=== PATIENT | male | born 1935 | race Caucasian/White ===

== ENCOUNTER 2024-01-04 11:37 | Inpatient (IN) | payer MEDICARE ==
--- NOTE | 2024-01-04 13:31 | ED ---
General Adult HPI - General Chief complaint: Recheck/Abnormal Lab/Rx Stated complaint: Abn labs Time Seen by Provider: 01/04/24 13:00 Source: patient, RN notes reviewed, old records reviewed Mode of arrival: ambulatory Limitations: no limitations - History of Present Illness Initial comments: Is an 88-year-old male who presents to the emergency department for low hemoglobin. Patient states he is on Eliquis for atrial fibrillation. Patient states has been months and he has been getting weaker more tired and more short of breath. Patient states when he takes a shower he has to sit down multiple times while taking a shower just to catch his breath. Patient denies chest pain or palpitation. Patient denies abdominal pain patient has nausea vomiting diarrhea. Patient denies any change in his stool. Patient Nu[place] any recent fever chills or cough - Related Data Home Medications Medication Instructions Recorded Confirmed Albuterol Inhaler [Ventolin Hfa 2 puff INHALATION RT-Q4H PRN 01/04/24 01/04/24 Inhaler] Apixaban [Eliquis] 5 mg PO BID 01/04/24 01/04/24 Brimonidine Tartrate/Timolol 1 drop LEFT EYE BID 01/04/24 01/04/24 [Combigan 0.2%-0.5% Eye Drops] Dorzolamide 2% [Trusopt 2%] 1 drops LEFT EYE BID 01/04/24 01/04/24 Gabapentin [Neurontin] 100 mg PO HS 01/04/24 01/04/24 Metoprolol Tartrate [Lopressor] 25 mg PO BID 01/04/24 01/04/24 Omeprazole 20 mg PO DAILY 01/04/24 01/04/24 Simvastatin [Zocor] 20 mg PO HS 01/04/24 01/04/24 Travoprost [Travatan Z 0.004%] 1 drop BOTH EYES HS 01/04/24 01/04/24 Vit C/E/Zn/Coppr/Lutein/Zeaxan 1 cap PO DAILY 01/04/24 01/04/24 [Preservision Areds 2 Softgel] glipiZIDE [Glucotrol] 10 mg PO AC-BID 01/04/24 01/04/24 lisinopriL 40 mg PO DAILY 01/04/24 01/04/24 metFORMIN HCL 1,000 mg PO BID 01/04/24 01/04/24 Allergies Allergy/AdvReac Type Severity Reaction Status Date / Time No Known Allergies Allergy Verified 01/04/24 13:25 Review of Systems ROS Statement: Those systems with pertinent positive or pertinent negative responses have been documented in the HPI. ROS Other: All systems not noted in ROS Statement are negative. Past Medical History Past Medical History: Atrial Fibrillation, Hypertension History of Any Multi-Drug Resistant Organisms: None Reported Additional Past Surgical History / Comment(s): eyes. Past Psychological History: No Psychological Hx Reported Smoking Status: Never smoker Past Alcohol Use History: None Reported Past Drug Use History: None Reported General Exam - General Exam Comments Initial Comments: GENERAL: Patient is well-developed and well-nourished. Patient is nontoxic and well- hydrated and is in mild distress. ENT: Neck is soft and supple. No significant lymphadenopathy is noted. Oropharynx is clear. Moist mucous membranes. Neck has full range of motion without eliciting any pain. EYES: The sclera were anicteric and conjunctiva are pale. Extraocular movements were intact and pupils were equal round and reactive to light. Eyelids were unremarkable. PULMONARY: Unlabored respirations. Good breath sounds bilaterally. No audible rales rhonchi or wheezing was noted. CARDIOVASCULAR: There is a regular rate and rhythm without any murmurs gallops or rubs. ABDOMEN: Soft and nontender with normal bowel sounds. SKIN: Skin is clear with no lesions or rashes and otherwise unremarkable. NEUROLOGIC: Patient is alert and oriented x3. Cranial nerves II through XII are grossly intact. Motor and sensory are also intact. Normal speech, volume and content. Symmetrical smile. MUSCULOSKELETAL: Normal extremities with adequate strength and full range of motion. No lower extremity swelling or edema. No calf tenderness. LYMPHATICS: No significant lymphadenopathy is noted PSYCHIATRIC: Normal psychiatric evaluation. Limitations: no limitations Course Vital Signs 01/04/24 01/04/24 01/04/24 11:58 13:05 13:10 Temperature 97.4 F L 97.8 F Pulse Rate 66 62 Respiratory 18 18 18 Rate Blood Pressure 115/66 155/66 O2 Sat by Pulse 99 96 Oximetry 01/04/24 01/04/24 01/04/24 14:08 14:58 15:10 Temperature 97.6 F 97.7 F 98.0 F Pulse Rate 74 56 L 71 Respiratory 16 16 18 Rate Blood Pressure 145/80 149/66 143/74 O2 Sat by Pulse 99 100 100 Oximetry Medical Decision Making - Medical Decision Making EKG is interpreted by myself. EKG shows atrial fibrillation at 60 bpm QRS 102 QT interval 410 QTc is 411. Patient's EKG shows no ST segment elevation Was pt. sent in by a medical professional or institution (WILLIAM Isabel, ARTIFICIAL STONE APPLICATOR, urgent care, hospital, or long-term...) When possible be specific @ -Sent in by the primary medical care doctor Did you speak to anyone other than the patient for history (EMS, parent, family, police, friend...)? What history was obtained from this source @ -Patient's daughter gave some of his Did you review nursing and triage notes (agree or disagree)? Why? @ -I reviewed and agree with nursing and triage notes Were old charts reviewed (outside hosp., previous admission, EMS record, old EKG, old radiological studies, urgent care reports/EKG's, long-term records)? Report findings @ -No old charts were reviewed Differential Diagnosis? @ -Anemia, GI bleed, congestive heart failure, this is not an all-inclusive list EKG interpreted by me (3pts min.). @ -As above X-rays interpreted by me (1pt min.). @ -None done CT interpreted by me (1pt min.). @ -None done U/S interpreted by me (1pt. min.). @ -None done What testing was considered but not performed or refused? (CT, X-rays, U/S, labs)? Why? @ -None What meds were considered but not given or refused? Why? @ -None Did you discuss the management of the patient with other professionals (professionals i.e. WILLIAM Isabel, ARTIFICIAL STONE APPLICATOR, lab, RT, psych nurse, nephrology social worker, senior sustainability consultant, teacher, emergency communications officer, employment case manager)? Give summary @ -I spoke with [facility] hospitalist and they agreed to admit the patient Was smoking cessation discussed for >3mins.? @ -No Was critical care preformed (if so, how long)? @ -35 minutes Were there social determinants of health that impacted care today? How? (Homelessness, low income, unemployed, alcoholism, drug addiction, transportation, low edu. Level, literacy, decrease access to med. care, assisted, rehab)? @ -No Was there de-escalation of care discussed even if they declined (Discuss DNR or withdrawal of care, Hospice)? DNR status @ -No What co-morbidities impacted this encounter? (DM, HTN, Smoking, COPD, CAD, Cancer, CVA, ARF, Chemo, Hep., AIDS, mental health diagnosis, sleep apnea, morbid obesity)? @ -None Was patient admitted / discharged? Hospital course, mention meds given and route, prescriptions, significant lab abnormalities, going to OR and other pertinent info. @ -Patient's hemoglobin was 6.8 and will be receiving a unit of packed red blood cells and being admitted to [facility] with a consult to Dr. Blanco Undiagnosed new problem with uncertain prognosis? @ -No Drug Therapy requiring intensive monitoring for toxicity (Heparin, Nitro, Insulin, Cardizem)? @ -No Were any procedures done? @ -No Diagnosis/symptom? @ -Anemia Acute, or Chronic, or Acute on Chronic? @ -Acute Uncomplicated (without systemic symptoms) or Complicated (systemic symptoms)? @ -Complicated Side effects of treatment? @ -No Exacerbation, Progression, or Severe Exacerbation? @ -No Poses a threat to life or bodily function? How? (Chest pain, [place], [place], pneumonia, PE, COPD, DKA, ARF, appy, cholecystitis, CVA, Diverticulitis, Homicidal, Suicidal, threat to staff... and all critical care pts) @ -Yes this can lead to hypoxia and endorgan dysfunction - Lab Data Result diagrams: 01/04/24 12:16 01/04/24 12:16 Lab Results 01/04/24 01/04/24 01/04/24 Range/Units 12:11 12:16 12:16 WBC 6.6 (3.8-10.6) k/uL RBC 3.08 L (4.30-5.90) m/uL Hgb 6.8 L* (13.0-17.5) gm/dL Hct 23.9 L (39.0-53.0) % MCV 77.5 L (80.0-100.0) fL MCH 22.2 L (25.0-35.0) pg MCHC 28.6 L (31.0-37.0) g/dL RDW 18.0 H (11.5-15.5) % Plt Count 309 (150-450) k/uL MPV 8.2 Neutrophils % 79 % Lymphocytes % 13 % Monocytes % 4 % Eosinophils % 2 % Basophils % 1 % Neutrophils # 5.2 (1.3-7.7) k/uL Lymphocytes # 0.8 L (1.0-4.8) k/uL Monocytes # 0.2 (0-1.0) k/uL Eosinophils # 0.1 (0-0.7) k/uL Basophils # 0.1 (0-0.2) k/uL Hypochromasia Marked Poikilocytosis Slight Anisocytosis Slight Microcytosis Slight PT 11.9 (10.0-12.5) sec INR 1.1 (<1.2) APTT 26.6 (22.0-30.0) sec Sodium (137-145) mmol/L Potassium (3.5-5.1) mmol/L Chloride (98-107) mmol/L Carbon Dioxide (22-30) mmol/L Anion Gap mmol/L BUN (9-20) mg/dL Creatinine (0.66-1.25) mg/dL Est GFR (CKD-EPI)AfAm (>60 ml/min/1.73 sqM) Est GFR (CKD-EPI)NonAf (>60 ml/min/1.73 sqM) Glucose (74-99) mg/dL Calcium (8.4-10.2) mg/dL Magnesium (1.6-2.3) mg/dL Total Bilirubin (0.2-1.3) mg/dL AST (17-59) U/L ALT (4-49) U/L Alkaline Phosphatase (38-126) U/L Troponin I (0.000-0.034) ng/mL Total Protein (6.3-8.2) g/dL Albumin (3.5-5.0) g/dL Blood Type Blood Type Confirm O Positive Blood Type Recheck Bld Type Recheck Status Antibody Screen Crossmatch Spec Expiration Date 01/04/24 01/04/24 01/04/24 Range/Units 12:16 12:16 12:16 WBC (3.8-10.6) k/uL RBC (4.30-5.90) m/uL Hgb (13.0-17.5) gm/dL Hct (39.0-53.0) % MCV (80.0-100.0) fL MCH (25.0-35.0) pg MCHC (31.0-37.0) g/dL RDW (11.5-15.5) % Plt Count (150-450) k/uL MPV Neutrophils % % Lymphocytes % % Monocytes % % Eosinophils % % Basophils % % Neutrophils # (1.3-7.7) k/uL Lymphocytes # (1.0-4.8) k/uL Monocytes # (0-1.0) k/uL Eosinophils # (0-0.7) k/uL Basophils # (0-0.2) k/uL Hypochromasia Poikilocytosis Anisocytosis Microcytosis PT (10.0-12.5) sec INR (<1.2) APTT (22.0-30.0) sec Sodium 139 (137-145) mmol/L Potassium 4.4 (3.5-5.1) mmol/L Chloride 114 H (98-107) mmol/L Carbon Dioxide 13 L (22-30) mmol/L Anion Gap 12 mmol/L BUN 23 H (9-20) mg/dL Creatinine 1.12 (0.66-1.25) mg/dL Est GFR (CKD-EPI)AfAm 69 (>60 ml/min/1.73 sqM) Est GFR (CKD-EPI)NonAf 59 (>60 ml/min/1.73 sqM) Glucose 180 H (74-99) mg/dL Calcium 8.7 (8.4-10.2) mg/dL Magnesium 1.3 L (1.6-2.3) mg/dL Total Bilirubin 0.7 (0.2-1.3) mg/dL AST 23 (17-59) U/L ALT 16 (4-49) U/L Alkaline Phosphatase 70 (38-126) U/L Troponin I <0.012 (0.000-0.034) ng/mL Total Protein 6.9 (6.3-8.2) g/dL Albumin 4.1 (3.5-5.0) g/dL Blood Type O Positive Blood Type Confirm Blood Type Recheck No Previous Record Bld Type Recheck Status CABO Indicated Antibody Screen NEGATIVE Crossmatch See Detail Spec Expiration Date 01/07/20242315 Disposition Clinical Impression: Hypomagnesemia, Anemia Disposition: ADMITTED IP TO THIS [facility] Referrals: Quinten Tanner DO [Primary Care Provider] - 1-2 days Time of Disposition: 16:07
[2024-01-04 13:43] LABS: ALT 16 U/L (4-49); AST 23 U/L (17-59); African American GFR (CKD) 69 (>60 ml/min/1.73 sqM); Albumin 4.1 g/dL (3.5-5.0); Alkaline Phosphatase 70 U/L (38-126); Anion Gap 12 mmol/L; Blood Urea Nitrogen 23 mg/dL (9-20); Calcium 8.7 mg/dL (8.4-10.2); Carbon Dioxide 13 mmol/L (22-30); Chloride 114 mmol/L (98-107); Glucose 180 mg/dL (74-99); Magnesium 1.3 mg/dL (1.6-2.3); Non-African American GFR(CKD) 59 (>60 ml/min/1.73 sqM); Potassium 4.4 mmol/L (3.5-5.1); Sodium 139 mmol/L (137-145); Total Bilirubin 0.7 mg/dL (0.2-1.3); Total Protein 6.9 g/dL (6.3-8.2)
[2024-01-04 13:46] LABS: Anisocytosis Slight; Basophils # (A) 0.1 k/uL (0-0.2); Basophils % (A) 1 %; Eosinophils # (A) 0.1 k/uL (0-0.7); Eosinophils % (A) 2 %; HCT 23.9 % (39.0-53.0); Hypochromasia Marked; Lymphocytes # (A) 0.8 k/uL (1.0-4.8); Lymphocytes % (A) 13 %; MCH 22.2 pg (25.0-35.0); MCHC 28.6 g/dL (31.0-37.0); MCV 77.5 fL (80.0-100.0); Mean Platelet Volume 8.2; Microcytosis Slight; Monocytes # (A) 0.2 k/uL (0-1.0); Monocytes % (A) 4 %; Neutrophils # (A) 5.2 k/uL (1.3-7.7); Neutrophils % (A) 79 %; Platelet Count 309 k/uL (150-450); Poikilocytosis Slight; RBC 3.08 m/uL (4.30-5.90); WBC 6.6 k/uL (3.8-10.6)
[2024-01-04 13:48] LABS: HGB 6.8 gm/dL (13.0-17.5)
[2024-01-04 13:49] LABS: INR 1.1 (<1.2); Partial Thromboplastin Time 26.6 sec (22.0-30.0); Prothrombin Time 11.9 sec (10.0-12.5)
[2024-01-04] MEDS: MAGNESIUM SULFATE-D5W PMX 1 GM in DEXTROSE/WATER 1 100ML.BAG IVPB ONE (13:58)
[2024-01-04] MEDS ORDERED: DEXTROSE 50% SYRINGE 50 ML IVP PRN ×2 (14:38)
[2024-01-04] MEDS: PANTOPRAZOLE 40 MG/10 ML VIAL IVP STA (14:54)
[2024-01-04] MEDS: INSULIN ASPART (NovoLOG) 100 UNIT/ML VIAL SQ SCH (17:23)
[2024-01-04 17:25] LABS: Glucose,Whole Blood 62 mg/dL (70-110)
[2024-01-04 18:24] LABS: Glucose,Whole Blood 73 mg/dL (70-110)
[2024-01-04 20:06] LABS: % Iron Saturation 5.56 (15.00-50.00)
[2024-01-04 20:09] LABS: Glucose,Whole Blood 80 mg/dL (70-110)
[2024-01-04] MEDS ORDERED: ALBUTEROL HFA INHALER INHALATION PRN (20:12)
[2024-01-04] MEDS: BRIMONIDINE TARTRATE 0.2% DROPS 5 ML BTL LEFT EYE SCH (20:50)
[2024-01-04] MEDS: LATANOPROST 0.005% OPHTH DROPS 2.5 ML BTL BOTH EYES SCH (20:50)
[2024-01-04] MEDS: METOPROLOL TARTRATE 25 MG TAB PO SCH (20:51)
[2024-01-04] MEDS: DORZOLAMIDE HCL 2% DROPS 10 ML BTL LEFT EYE SCH (20:51)
[2024-01-04] MEDS: GABAPENTIN 100 MG CAP PO SCH (20:51)
[2024-01-04] MEDS: lisinopriL 20 MG TAB PO SCH (20:51)
[2024-01-04] MEDS: TIMOLOL 0.5% OPHTH DROPS 5 ML BTL LEFT EYE SCH (20:51)
[2024-01-04] MEDS: ATORVASTATIN 10 MG TAB PO SCH (20:51)
[2024-01-04 21:22] LABS: Anisocytosis Slight; Basophils # (A) 0.1 k/uL (0-0.2); Basophils % (A) 1 %; Eosinophils # (A) 0.1 k/uL (0-0.7); Eosinophils % (A) 2 %; HCT 26.3 % (39.0-53.0); HGB 7.9 gm/dL (13.0-17.5); Hypochromasia Marked; Lymphocytes % (A) 14 %; MCH 23.6 pg (25.0-35.0); MCHC 30.1 g/dL (31.0-37.0); MCV 78.4 fL (80.0-100.0); Mean Platelet Volume 9.3; Microcytosis Slight; Monocytes # (A) 0.4 k/uL (0-1.0); Monocytes % (A) 6 %; Neutrophils % (A) 75 %; Platelet Count 268 k/uL (150-450); Poikilocytosis Moderate; RBC 3.36 m/uL (4.30-5.90); RDW 18.2 % (11.5-15.5); WBC 6.7 k/uL (3.8-10.6)
--- NOTE | 2024-01-04 21:26 | P.HPIM ---
History of Present Illness H&P Date: 01/04/24 Chief Complaint: Shortness of breath Patient is a 88-year-old male with a past medical history of atrial fibrillation on anticoagulation with Eliquis, hypertension, diabetes type 2, chronic neck pain presents to ER with complaints of abnormal labs/low hemoglobin level. Casandra ent states that he did get MRI of the neck due to chronic pain blood workup done at that time showed hemoglobin low 6.0. Patient was referred to ER. Patient also states that he has been getting weaker, more tired and fatigued and is also having shortness of breath for the past couple of months. Denied any complaints of chest pain. No nausea or vomiting. Denied any hematemesis. Patient is not sure whether he has dark-colored stools. According to the patient he had stool blood test was done few weeks ago which was negative. Denied any complaints of trauma. No cough or sputum production. No fever no chills. Laboratory data on admission showed hemoglobin level of 6.8. Other laboratory data showed WBC 6.6 MCV 77.5 platelets 309 sodium 139 potassium 4.4 chloride 114 bicarb is 13 BUN 23 and creatinine 1.12 and blood sugar 140 and magnesium 1.3 liver enzymes are not elevated. Albumin 4.1 and troponin x 1 negative. Review of Systems Constitutional: Patient denies any fever or chills . Generalized weakness and fatigue Abdomen: Patient denied nausea vomiting and diarrhea and abdominal pain. Cardiovascular: Patient denies any chest pain. Positive for short of breath and exertional dyspnea. No palpitations. Respiratory: patient denied any cough or sputum production. Positive shortness of breath Neurologic: Patient denied any numbness or tingling. no headache. Musculoskeletal: Patient denies any complaints of joint swelling or deformity. Skin: Negative Psychiatric: Negative Endocrine: No heat or cold intolerance. No recent weight gain. Genitourinary: No dysuria or hematuria. All other 14 point ROS negative except the above Past Medical History Past Medical History: Atrial Fibrillation, Diabetes Mellitus, Hypertension History of Any Multi-Drug Resistant Organisms: None Reported Additional Past Surgical History / Comment(s): eyes. Past Psychological History: No Psychological Hx Reported Smoking Status: Never smoker Past Alcohol Use History: None Reported Past Drug Use History: None Reported - Past Family History Mother Family Medical History: Diabetes Mellitus Medications and Allergies Home Medications Medication Instructions Recorded Confirmed Type Albuterol Inhaler [Ventolin Hfa 2 puff INHALATION RT-Q4H PRN 01/04/24 01/04/24 History Inhaler] Apixaban [Eliquis] 5 mg PO BID 01/04/24 01/04/24 History Brimonidine Tartrate/Timolol 1 drop LEFT EYE BID 01/04/24 01/04/24 History [Combigan 0.2%-0.5% Eye Drops] Dorzolamide 2% [Trusopt 2%] 1 drops LEFT EYE BID 01/04/24 01/04/24 History Gabapentin [Neurontin] 100 mg PO HS 01/04/24 01/04/24 History Metoprolol Tartrate [Lopressor] 25 mg PO BID 01/04/24 01/04/24 History Omeprazole 20 mg PO DAILY 01/04/24 01/04/24 History Simvastatin [Zocor] 20 mg PO HS 01/04/24 01/04/24 History Travoprost [Travatan Z 0.004%] 1 drop BOTH EYES HS 01/04/24 01/04/24 History Vit C/E/Zn/Coppr/Lutein/Zeaxan 1 cap PO DAILY 01/04/24 01/04/24 History [Preservision Areds 2 Softgel] glipiZIDE [Glucotrol] 10 mg PO AC-BID 01/04/24 01/04/24 History lisinopriL 40 mg PO DAILY 01/04/24 01/04/24 History metFORMIN HCL 1,000 mg PO BID 01/04/24 01/04/24 History Allergies Allergy/AdvReac Type Severity Reaction Status Date / Time No Known Allergies Allergy Verified 01/04/24 13:25 Physical Exam Vitals: Vital Signs Temp Pulse Pulse Resp BP BP Pulse Ox 01/04/24 18:46 77 17 155/60 93 L 01/04/24 17:15 98.0 F 73 17 180/92 100 01/04/24 17:08 98.0 F 73 17 180/92 100 01/04/24 15:30 97.4 F L 66 17 150/63 100 01/04/24 15:10 98.0 F 71 18 143/74 100 01/04/24 14:58 97.7 F 56 L 16 149/66 100 01/04/24 14:08 97.6 F 74 16 145/80 99 01/04/24 13:10 97.8 F 62 18 155/66 96 01/04/24 13:05 18 01/04/24 11:58 97.4 F L 66 18 115/66 99 Intake and Output 01/04/24 01/04/24 01/04/24 06:59 14:59 22:59 Intake Total 310 Balance 310 Intake: Blood Product 310 Rc Irr As1 Unit 310 [id number] Other: Weight 79.832 kg 79.832 kg PHYSICAL EXAMINATION: Patient is lying in the bed comfortably, no acute distress, awake alert and oriented.. HEENT: Normocephalic. Neck is supple. Pupils reactive. Nostrils clear. Oral cavity is moist. Neck reveals no JVD, carotid bruits, or thyromegaly. CHEST EXAMINATION: Trachea is central. Symmetrical expansion. Lung lennon clear to auscultation and percussion. CARDIAC: Normal S1, S2 with no gallops. Systolic murmur. Irregular rhythm. ABDOMEN: Soft. Bowel sounds normal. No organomegaly. No abdominal bruits. Extremities: reveal no edema. No clubbing or cyanosis Neurologically awake, alert, oriented x3 with well-coordinated movements. No focal deficits noted Skin: No rash or skin lesions. Psychiatric: Coperative. Nonsuicidal Musculoskeletal: No joint swelling or deformity. Normal range of motion. Results CBC & Chem 7: 01/04/24 20:57 01/04/24 12:16 Labs: Abnormal Lab Results - Last 24 Hours (Table) 01/04/24 01/04/24 01/04/24 Range/Units 12:16 12:16 12:16 RBC 3.08 L (4.30-5.90) m/uL Hgb 6.8 L* (13.0-17.5) gm/dL Hct 23.9 L (39.0-53.0) % MCV 77.5 L (80.0-100.0) fL MCH 22.2 L (25.0-35.0) pg MCHC 28.6 L (31.0-37.0) g/dL RDW 18.0 H (11.5-15.5) % Lymphocytes # 0.8 L (1.0-4.8) k/uL Chloride 114 H (98-107) mmol/L Carbon Dioxide 13 L (22-30) mmol/L BUN 23 H (9-20) mg/dL Glucose 180 H (74-99) mg/dL POC Glucose (mg/dL) (70-110) mg/dL Magnesium 1.3 L (1.6-2.3) mg/dL Iron (65-175) UG/DL TIBC (228-460) UG/DL % Saturation (15.00-50.00) Transferrin (204.0-354.0) mg/dL Crossmatch See Detail 01/04/24 01/04/24 Range/Units 12:16 17:22 RBC (4.30-5.90) m/uL Hgb (13.0-17.5) gm/dL Hct (39.0-53.0) % MCV (80.0-100.0) fL MCH (25.0-35.0) pg MCHC (31.0-37.0) g/dL RDW (11.5-15.5) % Lymphocytes # (1.0-4.8) k/uL Chloride (98-107) mmol/L Carbon Dioxide (22-30) mmol/L BUN (9-20) mg/dL Glucose (74-99) mg/dL POC Glucose (mg/dL) 62 L (70-110) mg/dL Magnesium (1.6-2.3) mg/dL Iron 28 L (65-175) UG/DL TIBC 504 H (228-460) UG/DL % Saturation 5.56 L (15.00-50.00) Transferrin 360.0 H (204.0-354.0) mg/dL Crossmatch Thrombosis Risk Factor Assmnt - DVT/VTE Prophylaxis DVT/VTE Prophylaxis: Mechanical Prophylaxis ordered - Choose All That Apply Any of the Below Risk Factors Present?: Yes Each Factor Represents 1 point: Obesity (BMI >25) Other Risk Factors: Yes Each Risk Factor Represents 3 Points: Age 75 years or older Other congenital or acquired thrombophilia - If yes, enter type in comment: No Thrombosis Risk Factor Assessment Total Risk Factor Score: 4 Thrombosis Risk Factor Assessment Level: Moderate Risk Assessment and Plan Assessment: Symptomatic anemia with hemoglobin level 6.8 on admission Chronic blood loss anemia possible GI bleed Microcytic anemia likely iron deficiency Hypomagnesemia Chronic atrial fibrillation on anticoagulation with Eliquis Hyperlipidemia Diabetes type 2 [id number] Hypertension DVT prophylaxis with SCDs Plan: Patient will be started on IV hydration. Transfusing with 1 unit of PRBC to keep the hemoglobin level greater than 7. FOBT was ordered as well as iron profile. Patient will be started on clear liquid diet and nothing by mouth after midnight. Continue with PPI IV twice daily. Gastroenterology service was consulted. Eliquis is on hold. Continue to monitor H&H every 6 hourly. Follow-up closely. Continue with other home medications. Discussed with the patient and his at bedside in detail. Time with Patient: Greater than 30
[2024-01-05 01:48] LABS: Glucose,Whole Blood 72 mg/dL (70-110)
[2024-01-05 04:46] LABS: Anisocytosis Slight; Basophils % (A) 1 %; Eosinophils # (A) 0.2 k/uL (0-0.7); Eosinophils % (A) 3 %; HCT 22.1 % (39.0-53.0); Hypochromasia Marked; Lymphocytes # (A) 0.9 k/uL (1.0-4.8); Lymphocytes % (A) 17 %; MCH 23.6 pg (25.0-35.0); MCV 76.2 fL (80.0-100.0); Mean Platelet Volume 8.5; Microcytosis Slight; Monocytes # (A) 0.3 k/uL (0-1.0); Monocytes % (A) 6 %; Neutrophils # (A) 3.7 k/uL (1.3-7.7); Neutrophils % (A) 72 %; Platelet Count 252 k/uL (150-450); Poikilocytosis Marked; RDW 17.7 % (11.5-15.5); WBC 5.1 k/uL (3.8-10.6)
[2024-01-05 05:18] LABS: HGB 6.8 gm/dL (13.0-17.5)
[2024-01-05] MEDS: SODIUM CHLORIDE 0.9% 1,000 ML IV SCH ×2 (05:19→23:20)
[2024-01-05 06:06] LABS: Glucose,Whole Blood 81 mg/dL (70-110)
[2024-01-05 06:34] LABS: African American GFR (CKD) 81 (>60 ml/min/1.73 sqM); Anion Gap 8 mmol/L; Blood Urea Nitrogen 19 mg/dL (9-20); Calcium 8.5 mg/dL (8.4-10.2); Carbon Dioxide 18 mmol/L (22-30); Chloride 113 mmol/L (98-107); Glucose 71 mg/dL (74-99); Non-African American GFR(CKD) 70 (>60 ml/min/1.73 sqM); Sodium 139 mmol/L (137-145)
[2024-01-05] MEDS ORDERED: PANTOPRAZOLE 40 MG TABLET PO SCH (07:30)
[2024-01-05] MEDS: PANTOPRAZOLE 40 MG/10 ML VIAL IVP SCH (09:35)
[2024-01-05] MEDS: VIT A,C & E-LUTEIN-MINERALS 1 EACH TAB PO SCH (09:36)
[2024-01-05 11:41] LABS: Glucose,Whole Blood 117 mg/dL (70-110)
--- NOTE | 2024-01-05 12:25 | P.CONS ---
History of Present Illness - Reason for Consult Consult date: 01/05/24 Anemia Requesting physician: Rubén Rodriguez - Chief Complaint Weakness, dyspnea - History of Present Illness This a pleasant 88-year-old male with a medical history including atrial fibrillation on Eliquis diagnosed about 2 years ago and hypertension who had presented to the emergency department yesterday with complaints of increased weakness and shortness of breath. States he had blood work done and was told that he had low hemoglobin and come to the emergency department. Hemoglobin on admission was 6.8, he was given 1 unit of blood with repeat hemoglobin is 7.9 with a drop again today to 6.8. He is status post 2 units of blood. He denies any previous history of GI bleed. No history of peptic ulcer disease, does have some GERD but takes omeprazole at home. No previous upper endoscopy. Last colonoscopy several years ago. He does state that he did do a Cologuard about a year ago that was negative. He denies any blood in his stool or black stool. Denies any abdominal pain, nausea or vomiting. Does not take any NSAIDs. Review of Systems REVIEW OF SYSTEMS: CARDIOPULMONARY: No chest pain or dyspnea with exertion. Gastrointestinal: No abdominal pain. No nausea or vomiting. No hematemesis, coffee-ground emesis. No rectal bleeding, or melena. GENITOURINARY: No dysuria or hematuria. MUSCULOSKELETAL: Reports normal range of motion. Joint pain. SKIN: No rashes. No jaundice. ENDOCRINE: No chills, fevers. No excessive weight gain or loss. No polydipsia or polyuria. PSYCHIATRIC: Unremarkable. NEUROLOGY: No change in mental status. Denies dizziness, headache. ENT: Vision unremarkable. CONSTITUTIONAL: No recent weight loss. No fever, chills, night sweats. Increased weakness and fatigue. Past Medical History Past Medical History: Atrial Fibrillation, Diabetes Mellitus, Hypertension History of Any Multi-Drug Resistant Organisms: None Reported Additional Past Surgical History / Comment(s): eyes. Past Psychological History: No Psychological Hx Reported Smoking Status: Never smoker Past Alcohol Use History: None Reported Past Drug Use History: None Reported - Past Family History Mother Family Medical History: Diabetes Mellitus Medications and Allergies Home Medications Medication Instructions Recorded Confirmed Type Albuterol Inhaler [Ventolin Hfa 2 puff INHALATION RT-Q4H PRN 01/04/24 01/04/24 History Inhaler] Apixaban [Eliquis] 5 mg PO BID 01/04/24 01/04/24 History Brimonidine Tartrate/Timolol 1 drop LEFT EYE BID 01/04/24 01/04/24 History [Combigan 0.2%-0.5% Eye Drops] Dorzolamide 2% [Trusopt 2%] 1 drops LEFT EYE BID 01/04/24 01/04/24 History Gabapentin [Neurontin] 100 mg PO HS 01/04/24 01/04/24 History Metoprolol Tartrate [Lopressor] 25 mg PO BID 01/04/24 01/04/24 History Omeprazole 20 mg PO DAILY 01/04/24 01/04/24 History Simvastatin [Zocor] 20 mg PO HS 01/04/24 01/04/24 History Travoprost [Travatan Z 0.004%] 1 drop BOTH EYES HS 01/04/24 01/04/24 History Vit C/E/Zn/Coppr/Lutein/Zeaxan 1 cap PO DAILY 01/04/24 01/04/24 History [Preservision Areds 2 Softgel] glipiZIDE [Glucotrol] 10 mg PO AC-BID 01/04/24 01/04/24 History lisinopriL 40 mg PO DAILY 01/04/24 01/04/24 History metFORMIN HCL 1,000 mg PO BID 01/04/24 01/04/24 History Allergies Allergy/AdvReac Type Severity Reaction Status Date / Time No Known Allergies Allergy Verified 01/04/24 13:25 Physical Exam Vitals: Vital Signs Temp Pulse Pulse Resp BP BP BP 01/05/24 08:00 97.1 F L 83 16 115/63 01/05/24 07:49 97.7 F 64 16 165/66 01/05/24 06:49 97.5 F L 67 16 161/69 01/05/24 06:29 97.8 F 73 16 159/58 01/05/24 06:20 97.4 F L 63 16 133/65 01/05/24 03:36 97.4 F L 52 L 12 125/54 01/04/24 23:48 59 L 18 110/64 01/04/24 19:35 97.1 F L 59 L 20 163/56 01/04/24 18:46 77 17 155/60 01/04/24 17:15 98.0 F 73 17 180/92 01/04/24 17:08 98.0 F 73 17 180/92 01/04/24 15:30 97.4 F L 66 17 150/63 01/04/24 15:10 98.0 F 71 18 143/74 01/04/24 14:58 97.7 F 56 L 16 149/66 01/04/24 14:08 97.6 F 74 16 145/80 01/04/24 13:10 97.8 F 62 18 155/66 01/04/24 13:05 18 01/04/24 11:58 97.4 F L 66 18 115/66 Pulse Ox 01/05/24 08:00 96 01/05/24 07:49 96 01/05/24 06:49 96 01/05/24 06:29 97 01/05/24 06:20 96 01/05/24 03:36 96 01/04/24 23:48 97 01/04/24 19:35 97 01/04/24 18:46 93 L 01/04/24 17:15 100 01/04/24 17:08 100 01/04/24 15:30 100 01/04/24 15:10 100 01/04/24 14:58 100 01/04/24 14:08 99 01/04/24 13:10 96 01/04/24 13:05 01/04/24 11:58 99 Intake and Output 01/04/24 01/05/24 01/05/24 22:59 06:59 14:59 Intake Total 310 0 280 Balance 310 0 280 Intake: Blood Product 310 0 280 Rc Irr As1 Unit 310 [id number] Rc Pheresis 2 As3 Unit 0 280 [id number] Other: Voiding Method Toilet Toilet Toilet # Voids 1 1 Weight 79.832 kg 80 kg General appearance: The patient is alert, oriented, appears in no acute distress. HET: Head is normocephalic and atraumatic. Conjunctiva pink. Sclera anicteric. Neck: Supple without lymphadenopathy. Trachea midline. Heart: Regular. Lungs: Equal expansion, normal respiratory effort. Abdomen: Soft, nontender, nondistended. Skin: No rashes. No jaundice. Extremities: Normal skin color and turgor. No pedal edema. Neurological: No focal deficits. Alert and oriented x3. Results CBC & Chem 7: 01/05/24 03:30 01/05/24 06:15 Labs: Abnormal Lab Results - Last 24 Hours (Table) 01/04/24 01/04/24 01/04/24 Range/Units 12:16 12:16 12:16 RBC 3.08 L (4.30-5.90) m/uL Hgb 6.8 L* (13.0-17.5) gm/dL Hct 23.9 L (39.0-53.0) % MCV 77.5 L (80.0-100.0) fL MCH 22.2 L (25.0-35.0) pg MCHC 28.6 L (31.0-37.0) g/dL RDW 18.0 H (11.5-15.5) % Lymphocytes # 0.8 L (1.0-4.8) k/uL Chloride 114 H (98-107) mmol/L Carbon Dioxide 13 L (22-30) mmol/L BUN 23 H (9-20) mg/dL Glucose 180 H (74-99) mg/dL POC Glucose (mg/dL) (70-110) mg/dL Magnesium 1.3 L (1.6-2.3) mg/dL Iron (65-175) UG/DL TIBC (228-460) UG/DL % Saturation (15.00-50.00) Transferrin (204.0-354.0) mg/dL Crossmatch See Detail 01/04/24 01/04/24 01/04/24 Range/Units 12:16 17:22 20:57 RBC 3.36 L (4.30-5.90) m/uL Hgb 7.9 L (13.0-17.5) gm/dL Hct 26.3 L (39.0-53.0) % MCV 78.4 L (80.0-100.0) fL MCH 23.6 L (25.0-35.0) pg MCHC 30.1 L (31.0-37.0) g/dL RDW 18.2 H (11.5-15.5) % Lymphocytes # (1.0-4.8) k/uL Chloride (98-107) mmol/L Carbon Dioxide (22-30) mmol/L BUN (9-20) mg/dL Glucose (74-99) mg/dL POC Glucose (mg/dL) 62 L (70-110) mg/dL Magnesium (1.6-2.3) mg/dL Iron 28 L (65-175) UG/DL TIBC 504 H (228-460) UG/DL % Saturation 5.56 L (15.00-50.00) Transferrin 360.0 H (204.0-354.0) mg/dL Crossmatch 01/05/24 01/05/24 Range/Units 03:30 06:15 RBC 2.90 L (4.30-5.90) m/uL Hgb 6.8 L* (13.0-17.5) gm/dL Hct 22.1 L (39.0-53.0) % MCV 76.2 L (80.0-100.0) fL MCH 23.6 L (25.0-35.0) pg MCHC (31.0-37.0) g/dL RDW 17.7 H (11.5-15.5) % Lymphocytes # 0.9 L (1.0-4.8) k/uL Chloride 113 H (98-107) mmol/L Carbon Dioxide 18 L (22-30) mmol/L BUN (9-20) mg/dL Glucose 71 L (74-99) mg/dL POC Glucose (mg/dL) (70-110) mg/dL Magnesium (1.6-2.3) mg/dL Iron (65-175) UG/DL TIBC (228-460) UG/DL % Saturation (15.00-50.00) Transferrin (204.0-354.0) mg/dL Crossmatch Assessment and Plan (1) Microcytic anemia Narrative/Plan: 8-year-old male presenting with symptomatic anemia. Noted to have microcytic anemia. Iron studies ordered. Denies any signs of GI bleed. Last colonoscopy several years ago no previous upper endoscopy and no previous history of peptic ulcer disease. Patient is on Eliquis for atrial fibrillation. Unclear etiology of anemia, need to rule out GI source. Will plan for upper and lower endoscopy. Hold anticoagulation. Current Visit: Yes Status: Acute Code(s): D50.9 - IRON DEFICIENCY ANEMIA, UNSPECIFIED SNOMED Code(s): 753608529 (2) Atrial fibrillation Narrative/Plan: On ELiquis Current Visit: Yes Status: Acute Code(s): I48.91 - UNSPECIFIED ATRIAL FIBRILLATION SNOMED Code(s): 46036954 Plan: 1. Continue symptomatic and supportive care 2. Clear liquid diet 3. N.p.o. after midnight other than bowel prep 4. Start bowel prep tomorrow morning and complete by 10 AM 5. Hold anticoagulation 6. Continue Protonix 40 mg twice daily 7. Will plan for EGD and colonoscopy, possible small bowel capsule endoscopy Thank you for this consultation, we will continue to follow. Dr. Ino Swartz I agree with the dictator's note, documented as a scribe by Estephanie Mckoy.
[2024-01-05 13:46] LABS: Anisocytosis Slight; HCT 26.8 % (39.0-53.0); HGB 8.2 gm/dL (13.0-17.5); Hypochromasia Marked; MCHC 30.7 g/dL (31.0-37.0); MCV 78.3 fL (80.0-100.0); Mean Platelet Volume 9.2; Microcytosis Slight; Platelet Count 234 k/uL (150-450); Poikilocytosis Marked; RBC 3.42 m/uL (4.30-5.90); RDW 17.7 % (11.5-15.5); WBC 4.9 k/uL (3.8-10.6)
[2024-01-05 16:37] LABS: Glucose,Whole Blood 165 mg/dL (70-110)
[2024-01-05] MEDS: MAGNESIUM CITRATE 296 ML BOTTLE PO ONE (16:44)
[2024-01-05] MEDS ORDERED: Magnesium Replacement Protocol 1 EACH MISC MISCELLANE PRN (17:24)
[2024-01-05] MEDS: MAGNESIUM SULFATE-D5W PMX 1 GM in DEXTROSE/WATER 1 100ML.BAG IVPB SCH ×2 (17:55→23:20)
[2024-01-05 20:07] LABS: Glucose,Whole Blood 278 mg/dL (70-110)
[2024-01-06 06:08] LABS: Glucose,Whole Blood 103 mg/dL (70-110)
[2024-01-06] MEDS: PEG 3350 (236 GM/BTL) + LYTES 4,000 ML BOTTLE PO ONE (06:18)
[2024-01-06 10:47] LABS: Anisocytosis Slight; HCT 28.4 % (39.0-53.0); HGB 8.7 gm/dL (13.0-17.5); Hypochromasia Marked; MCH 24.1 pg (25.0-35.0); MCHC 30.6 g/dL (31.0-37.0); MCV 78.6 fL (80.0-100.0); Mean Platelet Volume 8.2; Microcytosis Slight; Platelet Count 268 k/uL (150-450); Poikilocytosis Marked; RBC 3.61 m/uL (4.30-5.90); RDW 18.5 % (11.5-15.5); WBC 5.7 k/uL (3.8-10.6)
[2024-01-06 11:50] LABS: Glucose,Whole Blood 140 mg/dL (70-110)
[2024-01-06] MEDS: HYDROcodone/APAP 5-325MG 1 EACH TAB PO STA (12:30)
[2024-01-06] MEDS ORDERED: LIDOCAINE 1% INJ 10MG/ML (20 ML MDV) ONE (14:35)
[2024-01-06] MEDS ORDERED: PROPOFOL 10 MG/ML 20 ML VIAL IV ONE (14:35)
[2024-01-06] MEDS: IV FLUID CONTINUATION 1,000 ML IV ONE (15:00)
--- NOTE | 2024-01-06 15:18 | P.PCN ---
Date of Procedure: 01/06/24 Procedure(s) Performed: Brief history: Patient is a pleasant 88-year-old white male admitted to hospital with a hemoglobin of 6.8 g/dL requiring 2 units of PRBC transfusion. He is scheduled for an upper endoscopy as well as colonoscopy as a part of evaluation of severe symptomatic microcytic hypochromic anemia and iron indicis consistent with iron deficiency anemia. Procedure performed: Esophagogastroduodenoscopy with biopsy Colonoscopy with snare polypectomy and argon plasma coagulation Preoperative diagnosis: Severe symptomatic iron deficiency anemia Anesthesia: MAC Procedure: After informed consent was obtained from the patient was brought into the endoscopy unit and IV sedation was administered by anesthesia under continuous monitoring. Initially upper endoscopy was done. The Olympus GF 160 video endoscope was inserted inserted into the mouth and esophagus intubated without any difficulty and was gradually advanced into the stomach and duodenum and carefully examined. The bulb and second part of the duodenum appeared normal. The scope was then withdrawn into the stomach adequately insufflated with air and upon careful examination the antrum appeared normal. In the mid body of the stomach there was a 1.5 cm gastric polyp with friable mucosa and multiple biopsies were done of this area. Rest of the body, cardia and fundus appeared normal. The scope was then withdrawn into the esophagus. The GE junction was located at 40 cm to the incisors. It appeared regular with no erythema erosions or ulcerations. Rest of the esophagus appeared normal. Patient tolerated the procedure well. At this time the patient continued to remain sedation. Initial digital rectal examination was normal. Olympus CF 160 video colonoscope was then inserted into the rectum and gradually advanced to the cecum without any difficulty. Careful examination was performed as the scope was gradually being withdrawn. The prep was excellent. The cecum had 3 nonbleeding arteriovenous malformations measuring between 5 mm to 1 cm in size all of which with coagulated with argon plasma. There was a 5 mm nonbleeding AVM in the ascending colon that was also coagulated with argon plasma. Descending colon there was a 1 cm polyp removed by cold snare polypectomy. Rest of the ascending colon, transverse colon, descending colon, sigmoid colon and rectum appeared normal. Retroflexion was performed in the rectum and no lesions were noted. Patient tolerated the procedure well. Impression: 1. Upper endoscopy revealed a 1.5 cm gastric polyp with friable mucosa in the mid body of the stomach along the greater for at least status post multiple biopsies 2. 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 He was advised to follow with the biopsy results. Follow-up in the office in 1 week. Advance to regular diet. Monitor CBC. If he is stable he can be discharged home tomorrow with an outpatient follow-up in 1 week.
[2024-01-06 16:31] LABS: Glucose,Whole Blood 151 mg/dL (70-110)
[2024-01-06 20:20] LABS: Glucose,Whole Blood 199 mg/dL (70-110)
[2024-01-07 06:23] LABS: Glucose,Whole Blood 158 mg/dL (70-110)
[2024-01-07 07:53] LABS: Anisocytosis Slight; Basophils % (A) 1 %; Eosinophils # (A) 0.1 k/uL (0-0.7); Eosinophils % (A) 2 %; HCT 27.1 % (39.0-53.0); HGB 8.2 gm/dL (13.0-17.5); Hypochromasia Marked; Lymphocytes # (A) 0.8 k/uL (1.0-4.8); Lymphocytes % (A) 10 %; MCH 24.3 pg (25.0-35.0); MCHC 30.4 g/dL (31.0-37.0); MCV 79.9 fL (80.0-100.0); Mean Platelet Volume 7.9; Microcytosis Slight; Monocytes # (A) 0.4 k/uL (0-1.0); Monocytes % (A) 6 %; Neutrophils % (A) 80 %; Platelet Count 228 k/uL (150-450); Poikilocytosis Moderate; RBC 3.39 m/uL (4.30-5.90); RDW 19.4 % (11.5-15.5); WBC 7.5 k/uL (3.8-10.6)
[2024-01-07 08:33] LABS: African American GFR (CKD) 73 (>60 ml/min/1.73 sqM); Anion Gap 8 mmol/L; Blood Urea Nitrogen 11 mg/dL (9-20); Calcium 8.5 mg/dL (8.4-10.2); Carbon Dioxide 24 mmol/L (22-30); Chloride 107 mmol/L (98-107); Glucose 132 mg/dL (74-99); Non-African American GFR(CKD) 63 (>60 ml/min/1.73 sqM); Potassium 4.5 mmol/L (3.5-5.1); Sodium 139 mmol/L (137-145)
[2024-01-07] MEDS: APIXABAN 5 MG TAB PO SCH (09:27)
[2024-01-07 11:04] VITALS: RESP 16; TEMP 97.6
--- NOTE | 2024-01-07 11:14 | P.PN ---
Subjective Progress Note Date: 01/05/24 Patient is a 88-year-old male with a past medical history of atrial fibrillation on anticoagulation with Eliquis, hypertension, diabetes type 2, chronic neck pain presents to ER with complaints of abnormal labs/low hemoglobin level. Patient states that he did get MRI of the neck due to chronic pain blood workup done at that time showed hemoglobin low 6.0. Patient was referred to ER. Patient also states that he has been getting weaker, more tired and fatigued and is also having shortness of breath for the past couple of months. Denied any complaints of chest pain. No nausea or vomiting. Denied any hematemesis. Patient is not sure whether he has dark-colored stools. According to the patient he had stool blood test was done few weeks ago which was negative. Denied any complaints of trauma. No cough or sputum production. No fever no chills. Laboratory data on admission showed hemoglobin level of 6.8. Other laboratory data showed WBC 6.6 MCV 77.5 platelets 309 sodium 139 potassium 4.4 chloride 114 bicarb is 13 BUN 23 and creatinine 1.12 and blood sugar 140 and magnesium 1.3 liver enzymes are not elevated. Albumin 4.1 and troponin x 1 negative. 01/05/2024 Patient is lying in bed. Awake alert and orient x 3. Patient states that his weakness is better today. No fever no chills. Patient did not have any bowel meant today. Laboratory data showed WBC 4.9 hemoglobin 8.2 and platelets 234. Magnesium 1.4 which is being replaced. Continued on IV Protonix. GI is planning for EGD and colonoscopy tomorrow. Current medications reviewed. Objective - Vital Signs Vital signs: Vital Signs Temp 97.4 F L 01/05/24 10:59 Pulse 61 01/05/24 16:00 Resp 16 01/05/24 16:00 BP 148/66 01/05/24 16:00 Pulse Ox 100 01/05/24 16:00 FiO2 Intake & Output 01/05/24 01/05/24 01/06/24 06:59 18:59 06:59 Intake Total 0 638 Balance 0 638 Weight 80 kg Intake: Oral 358 Blood Product 0 280 Rc Pheresis 2 As3 Unit 0 280 [id number] Other: Voiding Method Toilet Toilet # Voids 1 - Exam PHYSICAL EXAMINATION: Patient is lying in the bed comfortably, no acute distress, awake alert and oriented.. HEENT: Normocephalic. Neck is supple. Pupils reactive. Nostrils clear. Oral cavity is moist. Neck reveals no JVD, carotid bruits, or thyromegaly. CHEST EXAMINATION: Trachea is central. Symmetrical expansion. Lung lennon clear to auscultation and percussion. CARDIAC: Normal S1, S2 with no gallops. No murmurs ABDOMEN: Soft. Bowel sounds normal. No organomegaly. No abdominal bruits. Extremities: reveal no edema. No clubbing or cyanosis Neurologically awake, alert, oriented x3 with well-coordinated movements. No focal deficits noted Skin: No rash or skin lesions. Psychiatric: Coperative. Nonsuicidal Musculoskeletal: No joint swelling or deformity. Normal range of motion. - Labs CBC & Chem 7: 01/07/24 06:56 01/07/24 06:56 Labs: Abnormal Lab Results - Last 24 Hours (Table) 01/04/24 01/05/24 01/05/24 Range/Units 12:16 03:30 06:15 RBC 2.90 L (4.30-5.90) m/uL Hgb 6.8 L* (13.0-17.5) gm/dL Hct 22.1 L (39.0-53.0) % MCV 76.2 L (80.0-100.0) fL MCH 23.6 L (25.0-35.0) pg MCHC (31.0-37.0) g/dL RDW 17.7 H (11.5-15.5) % Lymphocytes # 0.9 L (1.0-4.8) k/uL Chloride 113 H (98-107) mmol/L Carbon Dioxide 18 L (22-30) mmol/L Glucose 71 L (74-99) mg/dL POC Glucose (mg/dL) (70-110) mg/dL Magnesium (1.6-2.3) mg/dL Crossmatch See Detail 01/05/24 01/05/24 01/05/24 Range/Units 11:39 13:21 13:21 RBC 3.42 L (4.30-5.90) m/uL Hgb 8.2 L (13.0-17.5) gm/dL Hct 26.8 L (39.0-53.0) % MCV 78.3 L (80.0-100.0) fL MCH 24.0 L (25.0-35.0) pg MCHC 30.7 L (31.0-37.0) g/dL RDW 17.7 H (11.5-15.5) % Lymphocytes # (1.0-4.8) k/uL Chloride (98-107) mmol/L Carbon Dioxide (22-30) mmol/L Glucose (74-99) mg/dL POC Glucose (mg/dL) 117 H (70-110) mg/dL Magnesium 1.4 L (1.6-2.3) mg/dL Crossmatch 01/05/24 01/05/24 Range/Units 16:34 20:06 RBC (4.30-5.90) m/uL Hgb (13.0-17.5) gm/dL Hct (39.0-53.0) % MCV (80.0-100.0) fL MCH (25.0-35.0) pg MCHC (31.0-37.0) g/dL RDW (11.5-15.5) % Lymphocytes # (1.0-4.8) k/uL Chloride (98-107) mmol/L Carbon Dioxide (22-30) mmol/L Glucose (74-99) mg/dL POC Glucose (mg/dL) 165 H 278 H (70-110) mg/dL Magnesium (1.6-2.3) mg/dL Crossmatch Assessment and Plan Assessment: Symptomatic anemia with hemoglobin level 6.8 on admission Acute on chronic blood loss anemia possible GI bleed Microcytic anemia likely iron deficiency Hypomagnesemia Chronic atrial fibrillation on anticoagulation with Eliquis Hyperlipidemia Diabetes type 2 [id number] Hypertension DVT prophylaxis with SCDs Plan: Patient will be started on IV hydration. Transfusing with 1 unit of PRBC in the ER and 1 more unit yesterday. FOBT was positive. Iron profile showed deficiency.. Patient will be started on clear liquid diet and nothing by mouth after midnight. Continue with PPI IV twice daily. Gastroenterology is planning for EGD and colonoscopy tomorrow. Eliquis is on hold. Continue to monitor H&H every 6 hourly. Follow-up closely. Continue with other home medications. Discussed with the patient and his at bedside in detail. Time with Patient: Greater than 30
--- NOTE | 2024-01-07 11:16 | P.PN ---
Subjective Progress Note Date: 01/06/24 Patient is a 88-year-old male with a past medical history of atrial fibrillation on anticoagulation with Eliquis, hypertension, diabetes type 2, chronic neck pain presents to ER with complaints of abnormal labs/low hemoglobin level. Patient states that he did get MRI of the neck due to chronic pain blood workup done at that time showed hemoglobin low 6.0. Patient was referred to ER. Patient also states that he has been getting weaker, more tired and fatigued and is also having shortness of breath for the past couple of months. Denied any complaints of chest pain. No nausea or vomiting. Denied any hematemesis. Patient is not sure whether he has dark-colored stools. According to the patient he had stool blood test was done few weeks ago which was negative. Denied any complaints of trauma. No cough or sputum production. No fever no chills. Laboratory data on admission showed hemoglobin level of 6.8. Other laboratory data showed WBC 6.6 MCV 77.5 platelets 309 sodium 139 potassium 4.4 chloride 114 bicarb is 13 BUN 23 and creatinine 1.12 and blood sugar 140 and magnesium 1.3 liver enzymes are not elevated. Albumin 4.1 and troponin x 1 negative. 01/05/2024 Patient is lying in bed. Awake alert and orient x 3. Patient states that his weakness is better today. No fever no chills. Patient did not have any bowel meant today. Laboratory data showed WBC 4.9 hemoglobin 8.2 and platelets 234. Magnesium 1.4 which is being replaced. Continued on IV Protonix. GI is planning for EGD and colonoscopy tomorrow. 1023 2023 Patient is lying in the bed. Awake alert and oriented x 3. No complaints of chest pain or shortness of breath. Patient is taking bowel preparation for EGD and colonoscopy today. Hemoglobin 8.7. Otherwise hemoglobin level improved to 8.7 this morning. Magnesium 2.1. Continue with Protonix IV. GI is on board. Current medications reviewed. Objective - Vital Signs Vital signs: Vital Signs Temp 98.4 F 01/06/24 19:57 Pulse 78 01/06/24 19:57 Resp 15 01/06/24 20:09 BP 150/56 01/06/24 19:57 Pulse Ox 96 01/06/24 15:49 FiO2 Intake & Output 01/06/24 01/06/24 01/07/24 06:59 18:59 06:59 Intake Total 968 20 Balance 968 20 Weight 79.2 kg Intake: IV 250 20 Invasive Line 1 10 Invasive Line 2 10 Intake, IV Titration 600 Amount IV Fluid Continuation 1, 600 000 ml @ 0 mls/hr IV .[facility] Rx#:[id number] Oral 118 Other: Voiding Method Toilet Toilet Toilet # Voids 1 3 # Bowel Movements 2 - Exam PHYSICAL EXAMINATION: Patient is lying in the bed comfortably, no acute distress, awake alert and oriented.. HEENT: Normocephalic. Neck is supple. Pupils reactive. Nostrils clear. Oral cavity is moist. Neck reveals no JVD, carotid bruits, or thyromegaly. CHEST EXAMINATION: Trachea is central. Symmetrical expansion. Lung lennon clear to auscultation and percussion. CARDIAC: Normal S1, S2 with no gallops. No murmurs ABDOMEN: Soft. Bowel sounds normal. No organomegaly. No abdominal bruits. Extremities: reveal no edema. No clubbing or cyanosis Neurologically awake, alert, oriented x3 with well-coordinated movements. No focal deficits noted Skin: No rash or skin lesions. Psychiatric: Coperative. Nonsuicidal Musculoskeletal: No joint swelling or deformity. Normal range of motion. - Labs CBC & Chem 7: 01/07/24 06:56 01/07/24 06:56 Labs: Abnormal Lab Results - Last 24 Hours (Table) 01/05/24 01/06/24 01/06/24 Range/Units 06:15 08:54 11:44 RBC 3.61 L (4.30-5.90) m/uL Hgb 8.7 L (13.0-17.5) gm/dL Hct 28.4 L (39.0-53.0) % MCV 78.6 L (80.0-100.0) fL MCH 24.1 L (25.0-35.0) pg MCHC 30.6 L (31.0-37.0) g/dL RDW 18.5 H (11.5-15.5) % POC Glucose (mg/dL) 140 H (70-110) mg/dL RBC Folate 1,107 H (280 - 791) ng/mL 10/24/24 10/24/24 Range/Units 16:27 20:19 RBC (4.30-5.90) m/uL Hgb (13.0-17.5) gm/dL Hct (39.0-53.0) % MCV (80.0-100.0) fL MCH (25.0-35.0) pg MCHC (31.0-37.0) g/dL RDW (11.5-15.5) % POC Glucose (mg/dL) 151 H 199 H (70-110) mg/dL RBC Folate (280 - 791) ng/mL Assessment and Plan Assessment: Symptomatic anemia with hemoglobin level 6.8 on admission Acute on chronic blood loss anemia possible GI bleed Microcytic anemia likely iron deficiency Hypomagnesemia Chronic atrial fibrillation on anticoagulation with Eliquis Hyperlipidemia Diabetes type 2 [id number] Hypertension DVT prophylaxis with SCDs Plan: Patient will be started on IV hydration. Transfusing with 1 unit of PRBC in the ER and 1 more unit next day. Hemoglobin is fairly stable today.. FOBT was positive. Iron profile showed deficiency.. Patient will be started on clear liquid diet and nothing by mouth after midnight. Continue with PPI IV twice daily. Gastroenterology is planning for EGD and colonoscopy today. Eliquis is on hold. Continue to monitor H&H every 6 hourly. Follow-up closely. Continue with other home medications. Discussed with the patient and his family at bedside in detail.
[2024-01-07 11:27] LABS: Glucose,Whole Blood 231 mg/dL (70-110)
--- NOTE | 2024-01-07 11:41 | P.PN ---
Subjective Progress Note Date: 01/07/24 Principal diagnosis: Anemia, GI bleed This a pleasant 88-year-old male with a medical history including atrial fibrillation on Eliquis diagnosed about 2 years ago and hypertension who had presented to the emergency department yesterday with complaints of increased weakness and shortness of breath. States he had blood work done and was told that he had low hemoglobin and come to the emergency department. Hemoglobin on admission was 6.8, he was given 1 unit of blood with repeat hemoglobin is 7.9 with a drop again today to 6.8. He is status post 2 units of blood. He denies any previous history of GI bleed. No history of peptic ulcer disease, does have some GERD but takes omeprazole at home. No previous upper endoscopy. Last colonoscopy several years ago. He does state that he did do a Cologuard about a year ago that was negative. He denies any blood in his stool or black stool. Denies any abdominal pain, nausea or vomiting. Does not take any NSAIDs. 01/07/2024 Patient seen and examined today as a follow-up. Yesterday he underwent upper and lower endoscopy. Upper endoscopy revealed a 1.5 cm gastric polyp friable mucosa status post multiple biopsies. Colonoscopy revealed 3 nonbleeding AVMs base of the cecum status post argon plasma coagulation and ascending colon polyp status post polypectomy as well as 5 mm nonbleeding AVM in the ascending colon status post argon plasma coagulation. This was discussed with the patient again today at the bedside. Recommend outpatient follow-up in 1 week to review biopsy results. He denies any abdominal pain, no nausea or vomiting. Denies any bowel movement today. Hemoglobin stable at 8.2. Objective - Vital Signs Vital signs: Vital Signs Temp 97.8 F 01/07/24 03:34 Pulse 72 01/07/24 03:34 Resp 15 01/07/24 03:34 BP 116/55 01/07/24 03:34 Pulse Ox 97 01/07/24 03:34 FiO2 Intake & Output 01/06/24 01/07/24 01/07/24 18:59 06:59 18:59 Intake Total 968 40 Balance 968 40 Weight 79.7 kg Intake: IV 250 40 Invasive Line 1 20 Invasive Line 2 20 Intake, IV Titration 600 Amount IV Fluid Continuation 1, 600 000 ml @ 0 mls/hr IV .STK -MED ONE Rx#:[id number] Oral 118 Other: Voiding Method Toilet Toilet # Voids 3 1 - Exam General appearance: The patient is alert, oriented, appears in no acute distress. HET: Head is normocephalic and atraumatic. Conjunctiva pink. Sclera anicteric. Neck: Supple without lymphadenopathy. Abdomen: Soft, nontender, nondistended with bowel sounds. No guarding or rigidity. Extremities: Normal skin color and turgor. No pedal edema Skin: No rashes, no jaundice Neurological: No focal deficits. Alert and oriented. - Labs CBC & Chem 7: 01/07/24 06:56 01/07/24 06:56 Labs: Abnormal Lab Results - Last 24 Hours (Table) 01/05/24 01/06/24 01/06/24 Range/Units 06:15 08:54 11:44 RBC 3.61 L (4.30-5.90) m/uL Hgb 8.7 L (13.0-17.5) gm/dL Hct 28.4 L (39.0-53.0) % MCV 78.6 L (80.0-100.0) fL MCH 24.1 L (25.0-35.0) pg MCHC 30.6 L (31.0-37.0) g/dL RDW 18.5 H (11.5-15.5) % POC Glucose (mg/dL) 140 H (70-110) mg/dL RBC Folate 1,107 H (280 - 791) ng/mL 01/06/24 01/06/24 01/07/24 Range/Units 16:27 20:19 06:22 RBC (4.30-5.90) m/uL Hgb (13.0-17.5) gm/dL Hct (39.0-53.0) % MCV (80.0-100.0) fL MCH (25.0-35.0) pg MCHC (31.0-37.0) g/dL RDW (11.5-15.5) % POC Glucose (mg/dL) 151 H 199 H 158 H (70-110) mg/dL RBC Folate (280 - 791) ng/mL Assessment and Plan (1) Microcytic anemia Narrative/Plan: 88-year-old male presenting with symptomatic anemia. Noted to have microcytic anemia. Iron studies ordered. Denies any signs of GI bleed. Last colonoscopy several years ago no previous upper endoscopy and no previous history of peptic ulcer disease. Patient is on Eliquis for atrial fibrillation. Unclear etiology of anemia, need to rule out GI source. Status post EGD and colonoscopy with findings as stated in HPI. Outpatient follow-up for biopsy results. Current Visit: Yes Status: Acute Code(s): D50.9 - IRON DEFICIENCY ANEMIA, UNSPECIFIED SNOMED Code(s): 014720860 (2) Atrial fibrillation Narrative/Plan: On ELiquis Current Visit: Yes Status: Acute Code(s): I48.91 - UNSPECIFIED ATRIAL FIBRILLATION SNOMED Code(s): 83573822 Plan: 1. Continue symptomatic and supportive care 2. Regular diet 3. May resume Eliquis 4. Patient is status post EGD and colonoscopy 5. Patient is instructed to follow-up with gastroenterology next week . Appointment scheduled. Thank you for this consultation, he is cleared for discharge from gastroenterology. Dr. Ino Swartz I agree with the dictator's note, documented as a scribe by Estephanie Mckoy.
[2024-01-07] MEDS: SODIUM FERRIC GLUCONAT-SUCROSE 125 MG in SODIUM CHLORIDE 0.9% 100 ML IVPB ONE (13:26)
[2024-01-07 15:20] VITALS: BP 110/57; PULSE 60
--- NOTE | 2024-01-14 23:05 | P.DS ---
Providers Date of admission: 01/04/24 16:09 Expected date of discharge: 01/07/24 Attending physician: Raymond Mejia Consults: 01/04/24 16:07 Consult Physician Urgent Consulting Provider: Sophia Swartz Consult Reason/Comments: Anemia Do you want consulting provider notified?: Yes Primary care physician: [facility] Course: Discharge diagnosis Symptomatic anemia with hemoglobin level 6.8 on admission Acute on chronic blood loss anemia possible GI bleed Microcytic anemia likely iron deficiency Hypomagnesemia Chronic atrial fibrillation on anticoagulation with Eliquis Hyperlipidemia Diabetes type 2 [id number] Hypertension DVT prophylaxis with SCDs Hospital course Patient is a 88-year-old male with a past medical history of atrial fibrillation on anticoagulation with Eliquis, hypertension, diabetes type 2, chronic neck pain presents to ER with complaints of abnormal labs/low hemoglobin level. Patient states that he did get MRI of the neck due to chronic pain blood workup done at that time showed hemoglobin low 6.0. Patient was referred to ER. Patient also states that he has been getting weaker, more tired and fatigued and is also having shortness of breath for the past couple of months. Denied any complaints of chest pain. No nausea or vomiting. Denied any hematemesis. Patient is not sure whether he has dark-colored stools. According to the patient he had stool blood test was done few weeks ago which was negative. Denied any complaints of trauma. No cough or sputum production. No fever no chills. Laboratory data on admission showed hemoglobin level of 6.8. Other laboratory data showed WBC 6.6 MCV 77.5 platelets 309 sodium 139 potassium 4.4 chloride 114 bicarb is 13 BUN 23 and creatinine 1.12 and blood sugar 140 and magnesium 1.3 liver enzymes are not elevated. Albumin 4.1 and troponin x 1 negative. 01/05/2024 Patient is lying in bed. Awake alert and orient x 3. Patient states that his weakness is better today. No fever no chills. Patient did not have any bowel meant today. Laboratory data showed WBC 4.9 hemoglobin 8.2 and platelets 234. Magnesium 1.4 which is being replaced. Continued on IV Protonix. GI is planning for EGD and colonoscopy tomorrow. 1024 2023 Patient is lying in the bed. Awake alert and oriented x 3. No complaints of chest pain or shortness of breath. Patient is taking bowel preparation for EGD and colonoscopy today. Hemoglobin 8.7. Otherwise hemoglobin level improved to 8.7 this morning. Magnesium 2.1. Continue with Protonix IV. GI is on board. 01/07/2024 Patient is resting in the bed. Awake alert troponin x 3 with no complaints of abdominal pain. No nausea or vomiting. Denies any dark stools. Patient is status post endoscopy yesterday. Hemoglobin is stable. Patient is being discharged home and follow-up with GI in the clinic in 1 week for biopsy reports and CBC follow-up. Patient is being discharged home today.. Patient will be continued on iron supplementation. Impression: 1. Upper endoscopy revealed a 1.5 cm gastric polyp with friable mucosa in the mid body of the stomach along the greater for at least status post multiple biopsies 2. Colonoscopy revealed: 3 nonbleeding arteriovenous malformations of the base of the cecum measuring between 5 mm and 1 cm in size status post argon plasma coagulation 1 cm ascending colon polyp status post snare polypectomy 5 mm nonbleeding AVM in the ascending colon status post argon plasma coagulation PHYSICAL EXAMINATION: Patient is lying in the bed comfortably, no acute distress, awake alert and or iented.. HEENT: Normocephalic. Neck is supple. Pupils reactive. Nostrils clear. Oral cavity is moist. Neck reveals no JVD, carotid bruits, or thyromegaly. CHEST EXAMINATION: Trachea is central. Symmetrical expansion. Lung lennon clear to auscultation and percussion. CARDIAC: Normal S1, S2 with no gallops. No murmurs ABDOMEN: Soft. Bowel sounds normal. No organomegaly. No abdominal bruits. Extremities: reveal no edema. No clubbing or cyanosis Neurologically awake, alert, oriented x3 with well-coordinated movements. No focal deficits noted Skin: No rash or skin lesions. Psychiatric: Coperative. Nonsuicidal Musculoskeletal: No joint swelling or deformity. Normal range of motion. Vital signs: Vital Signs Temp 97.8 F 01/07/24 03:34 Pulse 72 01/07/24 03:34 Resp 15 01/07/24 03:34 BP 116/55 01/07/24 03:34 Pulse Ox 97 01/07/24 03:34 FiO2 Intake & Output 01/06/24 01/07/24 01/07/24 18:59 06:59 18:59 Intake Total 968 40 Balance 968 40 Weight 79.7 kg Intake: IV 250 40 Invasive Line 1 20 Invasive Line 2 20 Intake, IV Titration 600 Amount IV Fluid Continuation 1, 600 000 ml @ 0 mls/hr IV .Postcron -MED ONE Rx#:[id number] Oral 118 Other: Voiding Method Toilet Toilet # Voids 3 1 Total time taken greater than 35 minutes including 18 minutes for counseling and coordination of care. Patient Condition at Discharge: Stable Plan - Discharge Summary Discharge Rx Participant: No New Discharge Prescriptions: New Pantoprazole [Protonix] 40 mg PO DAILY #28 tab Ferrous Sulfate [Feosol] 325 mg PO DAILY #30 tab Continue Brimonidine Tartrate/Timolol [Combigan 0.2%-0.5% Eye Drops] 1 drop LEFT EYE BID lisinopriL 40 mg PO DAILY Simvastatin [Zocor] 20 mg PO HS Gabapentin [Neurontin] 100 mg PO HS Albuterol Inhaler [Ventolin Hfa Inhaler] 2 puff INHALATION RT-Q4H PRN PRN Reason: Shortness Of Breath Metoprolol Tartrate [Lopressor] 25 mg PO BID Travoprost [Travatan Z 0.004%] 1 drop BOTH EYES HS Dorzolamide 2% [Trusopt 2%] 1 drops LEFT EYE BID metFORMIN HCL 1,000 mg PO BID Apixaban [Eliquis] 5 mg PO BID glipiZIDE [Glucotrol] 10 mg PO AC-BID Omeprazole 20 mg PO DAILY Vit C/E/Zn/Coppr/Lutein/Zeaxan [Preservision Areds 2 Softgel] 1 cap PO DAILY Discharge Medication List Albuterol Inhaler [Ventolin Hfa Inhaler] 2 puff INHALATION RT-Q4H PRN 01/04/24 [History] Apixaban [Eliquis] 5 mg PO BID 01/04/24 [History] Brimonidine Tartrate/Timolol [Combigan 0.2%-0.5% Eye Drops] 1 drop LEFT EYE BID 01/04/24 [History] Dorzolamide 2% [Trusopt 2%] 1 drops LEFT EYE BID 01/04/24 [History] Gabapentin [Neurontin] 100 mg PO HS 01/04/24 [History] Metoprolol Tartrate [Lopressor] 25 mg PO BID 01/04/24 [History] Omeprazole 20 mg PO DAILY 01/04/24 [History] Simvastatin [Zocor] 20 mg PO HS 01/04/24 [History] Travoprost [Travatan Z 0.004%] 1 drop BOTH EYES HS 01/04/24 [History] Vit C/E/Zn/Coppr/Lutein/Zeaxan [Preservision Areds 2 Softgel] 1 cap PO DAILY 1 [History] glipiZIDE [Glucotrol] 10 mg PO AC-BID 01/04/24 [History] lisinopriL 40 mg PO DAILY 01/04/24 [History] metFORMIN HCL 1,000 mg PO BID 01/04/24 [History] Ferrous Sulfate [Feosol] 325 mg PO DAILY #30 tab 01/07/24 [Rx] Pantoprazole [Protonix] 40 mg PO DAILY #28 tab 01/07/24 [Rx] Follow up Appointment(s)/Referral(s): Sophia Swartz MD [STAFF PHYSICIAN] - 01/13/24 4:00 pm [facility] [NON-STAFF] - Quinten Tanner DO [Primary Care Provider] - 1-2 days Patient Instructions/Handouts: Anemia (DC), Colonoscopy (DC), Upper Endoscopy (DC) Discharge Disposition: HOME SELF-CARE
== END 2024-01-07 16:18 | disposition home or self-care (01) | DRG 378 ==
LOC: EC 11:37 → 3SCARD 16:09
PROVIDERS: ADMIT Hospitalist; ATTEND Hospitalist
PROC: 30233N1 Transfusion of Nonautologous Red Blood Cells into Peripheral Vein, Percutaneous Approach (ICD-10-PCS; 2024-01-04)
PROC: 0W3P8ZZ Control Bleeding in Gastrointestinal Tract, Via Natural or Artificial Opening Endoscopic (ICD-10-PCS; principal; 2024-01-06 08:00)
PROC: 0DB78ZX Excision of Stomach, Pylorus, Via Natural or Artificial Opening Endoscopic, Diagnostic (ICD-10-PCS; 2024-01-06 08:00)
PROC: 0DBM8ZZ Excision of Descending Colon, Via Natural or Artificial Opening Endoscopic (ICD-10-PCS; 2024-01-06 08:00)
DX: K55.21 Angiodysplasia of colon with hemorrhage (principal); D62 Acute posthemorrhagic anemia; I48.20 Chronic atrial fibrillation, unspecified; K31.7 Polyp of stomach and duodenum; E83.42 Hypomagnesemia; E78.5 Hyperlipidemia, unspecified; K63.5 Polyp of colon; E11.9 Type 2 diabetes mellitus without complications; I10 Essential (primary) hypertension; Z79.01 Long term (current) use of anticoagulants; Z79.84 Long term (current) use of oral hypoglycemic drugs; Z79.899 Other long term (current) drug therapy; Z86.0100 Personal history of colon polyps, unspecified
CPT/HCPCS: 36415; 36430; 43239; 45382; 45385; 80048; 80053; 82272; 82607; 82747; 83036; 83540; 83550; 83735; 84484; 85025; 85027; 85610; 85730; 86850; 86900; 86901; 86920; 88305; 88341; 88342; 93005; 96365; 96375; 99291

== ENCOUNTER → 2024-01-13 | Outpatient (CLI) | payer MEDICARE ==
--- NOTE | 2024-01-13 14:31 | US ---
EXAMINATION TYPE: US thyroid st tissue head/neck DATE OF EXAM: 01/13/2024 COMPARISON: NONE CLINICAL INDICATION: Male, 88 years old with history of E04.1 THYROID NODULE; Weakness, not feeling w ell TECHNIQUE: Grayscale and color Doppler imaging of the thyroid gland. FINDINGS: GLAND SIZE: Right Lobe: 2.8 x 0.9 x 1.6 cm Overall Parenchyma: homogeneous Left Lobe: 3.6 x 1.4 x 1.5 cm Overall Parenchyma: homogeneous Isthmus Thickness: 0.26 cm NODULES RIGHT: # of nodules measured on right: 0 LEFT: # of nodules measured on left: 0 ISTHMUS: # of nodules measured in the isthmus: 0 Bilateral neck scanned, no evidence of lymphadenopathy. IMPRESSION: Unremarkable thyroid gland without discrete nodule. [facility], , 01/13/2024 2:29 PM
== END | disposition home or self-care (01) ==
LOC: RADUSWWP 14:09
PROVIDERS: ATTEND Family Medicine
DX: E04.1 Nontoxic single thyroid nodule (principal)
CPT/HCPCS: 76536

== ENCOUNTER → 2024-01-13 | Outpatient (CLI) | payer MEDICARE ==
--- NOTE | 2024-01-13 14:36 | CT ---
EXAMINATION TYPE: CT chest wo con CT DLP: 354.50 mGycm, Automated exposure control for dose reduction was used. DATE OF EXAM: 01/13/2024 2:11 PM COMPARISON: Chest radiograph 11/16/2023 CLINICAL INDICATION:Male, 88 years old with history of R91.1 SOLITARY PULMONARY NODULE; PHH, SOLITARY PULMONARY NODULE TECHNIQUE: Multiple axial images were obtained through the chest without IV contrast. Lack of IV or o ral contrast limits evaluation of solid and hollow organ viscera. . Coronal and sagittal reformats re viewed. FINDINGS: LUNGS/ PLEURA: Mild centrilobular emphysematous changes. Trace left and small right pleural effusions . No pneumothorax. Right lower lobe 2.4 cm solid pulmonary nodule (series 4, image 29). Somewhat lobu lated in appearance. Elevation of the right hemidiaphragm. AIRWAY: Patent and unremarkable.. HEART: Size within normal limits. No pericardial effusion. Moderate to large coronary calcifications. Aortic valvular calcifications. Mitral annulus calcifications. MEDIASTINUM: No gross evidence of adenopathy. VASCULATURE: No aortic aneurysm. MUSCULOSKELETAL: No acute osseous abnormalities. Diffuse bone demineralization. Moderate multilevel d egenerative disc disease. DISH of the thoracic spine. SOFT TISSUES/LYMPH NODES: Unremarkable. LOWER NECK: No significant findings. UPPER ABDOMEN: Thickening of the left adrenal gland. Calcified left splenic pseudocyst. IMPRESSION: 1. Right lower lobe 2.4 cm solid pulmonary nodule. Raises concern for primary lung malignancy. Furth er evaluation with PET CT recommended. 2. Small right and trace left pleural effusions. 3. Moderate to large coronary artery calcifications. 4. Mild COPD changes. [facility], , 01/13/2024 2:34 PM
== END | disposition home or self-care (01) ==
LOC: RADCTMAIN 13:50
PROVIDERS: ATTEND Family Medicine
CPT/HCPCS: 71250

== ENCOUNTER → 2024-01-24 | Outpatient (CLI) | payer MEDICARE ==
--- NOTE | 2024-01-24 18:58 | MR ---
EXAMINATION TYPE: MR brain wo con DATE OF EXAM: 01/24/2024 6:09 PM COMPARISON: None. 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 Stud y is performed within 24 hours of arrival to the hospital.Multiplanar, multiecho imaging on a 3.0 Chanel la magnet is performed through the knee. IV Contrast: 0 mL Gadobutrol (None, if empty) IV access was unsuccessful despite multiple attempts. FINDINGS: The craniovertebral junction is normal. The pituitary is normal. Optic chiasm is visualized. Diffusion-weighted imaging is performed. No abnormal hyperintensity is present to suggest an acute i ntracranial infarct or acute ischemic change. Scattered. Ventricular white matter hyperintensities are present on her recovery can be related to ch ronic white matter type changes. Largest in left frontal lobe 1.1 cm in size scattered subcortical wh ite matter changes are present bilaterally. There is some hyperintensity within the right basal gangl ion. No diffusion correlation is evident. No suspicious changes to suggest these are associated with static disease are identified. Ventricles and sulci are appropriate for the patient age. There is some fluid within right mastoid air cells. Correlate for right mastoiditis. Mild mucosal thi ckening seen in bilateral ethmoid air cells. Retention cyst or polyp is in the anterior left frontal sinus. No postcontrast imaging could be performed. IMPRESSION: 1. 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 [facility], , 01/24/2024 6:56 PM
== END | disposition home or self-care (01) ==
LOC: RADMRIMAIN 15:57
PROVIDERS: ATTEND Internal Medicine Hematology & Oncology
DX: C43.59 Malignant melanoma of other part of trunk (principal); I67.82 Cerebral ischemia
CPT/HCPCS: 70551